=== PATIENT | female | born 1995 | race African-American/Black ===

== ENCOUNTER 2020-04-20 16:44 | Emergency (ER) | payer OTHER ==
[~2020-04-20] VITALS: Ht 165.1 cm; Wt 64.5 kg
[2020-04-20 17:10] VITALS: BP 119/84; TEMP 98.8
[2020-04-20 17:45] LABS: BASO % 0.2 % (0.0-2.0); EOS # 0.1 (0.0-0.7); EOS % 1.5 % (0-4.0); GRAN # 3.5 (1.4-6.5); GRAN % 63.3 % (42.2-75.2); HEMATOCRIT 37.8 % (37.0-47.0); HEMOGLOBIN 11.5 g/dl (12.5-16.0); LYMPH # 1.4 (1.2-3.4); LYMPH % 25.8 % (20.0-51.0); MEAN CELL VOLUME 72 fl (80.0-100.0); MEAN CORPUSCULAR HEMOGLOBIN 22 pg (27.0-31.0); MEAN CORPUSCULAR HGB CONC 30 g/dl (33.0-37.0); MEAN PLATELET VOLUME 10.9 fl (7.4-10.4); MONO # 0.5 (0.1-0.6); PLATELET COUNT 316 K/mm3 (130-400); RED BLOOD COUNT 5.24 M/mm3 (4.10-5.30); REDCELL DISTRIBUTION WIDTH-CV 16.8 % (11.5-14.5)
[2020-04-20 17:54] LABS: ALBUMIN 4.5 gm/dL (3.5-5.0); BILIRUBIN,TOTAL 0.7 mg/dL (0.0-1.0); CALCIUM 9.6 mg/dL (8.4-10.2); CREATININE, serum 0.55 (0.52-1.25); POTASSIUM 3.4 mmol/L (3.4-5.0)
[2020-04-20 18:52] LABS: COLLECTION METHOD CLEAN CATCH
[2020-04-20 18:59] LABS: MUCOUS Present /lpf; PH 5 (5-8); URINE APPEARANCE Hazy; URINE BACTERIA Rare /hpf; URINE BILIRUBIN Negative (NEGATIVE); URINE BLOOD Negative (NEGATIVE); URINE COLOR Yellow; URINE GLUCOSE Negative (NEGATIVE); URINE KETONE 2+ (NEGATIVE); URINE LEUKOCYTE ESTERASE Trace (NEGATIVE); URINE NITRATE Negative (NEGATIVE); URINE PROTEIN(semi-quant) 2+ (NEGATIVE); URINE RBC 0-2 /hpf
[2020-04-20 19:31] VITALS: PULSE 94
== END 2020-04-20 19:36 | disposition home or self-care (01) ==
LOC: COL.ER 16:44
PROVIDERS: Physician Assistant
DX: O26.891 Other specified pregnancy related conditions, first trimester (principal); R10.9 Unspecified abdominal pain; R11.2 Nausea with vomiting, unspecified; Z3A.00 Weeks of gestation of pregnancy not specified
CPT/HCPCS: J2765; J7030

== ENCOUNTER 2021-01-11 14:06 | Outpatient (CLI) | payer OTHER ==
[~2021-01-11] VITALS: Ht 165.1 cm; Wt 77.3 kg
--- NOTE | 2021-01-11 14:10 | NUR ---
PT ARRIVES AMBULATORY TO UNIT ALONE C/O N/V/DIARRHEA AND ABDOMINAL CRAMPING. PLACED IN GOWN AND ASSISTED INTO BED. PLACED ON EFM/TOCO. DENIES LEAKING OF FLUID AND REPORTS POSITIVE MOVEMENT. CATEGORY 1 STRIP ON EFM UPON ARRIVAL. SVE FINGER TIP/THICK/HIGH. WATER PROVIDED FOR PT TO BEGIN DRINKING. PT'S OB AT [facility] AND DOES NOT HAVE RECORDS AVAILABLE. DENIES PREGNACY COMPLICATIONS AND REPORTS SHE IS 32.5 WEEKS GESTATION TODAY.
[2021-01-11] MEDS ORDERED: PRENATAL PO (14:22)
[2021-01-11 14:45] VITALS: BP 133/70; PULSE 88; TEMP 99.1
[2021-01-11 15:15] LABS: COLLECTION METHOD CLEAN CATCH
[2021-01-11 15:34] LABS: MEAN CELL VOLUME 64 fl (80.0-100.0); MEAN CORPUSCULAR HGB CONC 29 g/dl (33.0-37.0); MEAN PLATELET VOLUME 10.4 fl (7.4-10.4); PLATELET COUNT 273 K/mm3 (130-400); RED BLOOD COUNT 4.08 M/mm3 (4.10-5.30); REDCELL DISTRIBUTION WIDTH-CV 19.3 % (11.5-14.5)
[2021-01-11 15:38] LABS: ALBUMIN 2.9 gm/dL (3.5-5.0); BILIRUBIN,TOTAL 0.5 mg/dL (0.2-1.2); CALCIUM 8.8 mg/dL (8.4-10.2); CREATININE, serum 0.61 mg/dL (0.57-1.11); POTASSIUM 3.5 mmol/L (3.5-4.5); TOTAL PROTEIN 6.9 gm/dL (6.2-8.1)
[2021-01-11 15:40] LABS: HEMATOCRIT 26.1 % (37.0-47.0); HEMOGLOBIN 7.5 g/dl (12.5-16.0); MEAN CORPUSCULAR HEMOGLOBIN 18 pg (27.0-31.0)
[2021-01-11 15:41] LABS: MUCOUS Present /lpf; PH 5 (5-8); URINE APPEARANCE Hazy; URINE BACTERIA None Seen /hpf; URINE BILIRUBIN Negative (NEGATIVE); URINE BLOOD Negative (NEGATIVE); URINE COLOR Yellow; URINE GLUCOSE Negative (NEGATIVE); URINE KETONE Negative (NEGATIVE); URINE LEUKOCYTE ESTERASE Negative (NEGATIVE); URINE NITRATE Negative (NEGATIVE); URINE PROTEIN(semi-quant) 1+ (NEGATIVE); URINE RBC 0-2 /hpf
[2021-01-11 15:42] VITALS: BP 143/68; PULSE 78
--- NOTE | 2021-01-11 15:47 | NUR ---
AT BEDSIDE, SVE FINGER TIP/THICK/HIGH. PT C/O ABDOMINAL CRAMPING, NAUSEA, VOMITING AND DIARRHEA THROUGHOUT , BUT WORSENING THE PAST 24 HOURS. PRIMARY OB AT [facility]. RECORDS UNAVAILABLE. REPORTS POSITIVE MOVEMENT AND DENIES LEAKING OF FLUID. PT TOLERATING PO FLUID AT THIS TIME. REVIEWS LABS AND ORDERS FOR PT TO DC HOME AND FOLLOW UP AT [place] WITH HER OB.
[2021-01-11 17:09] LABS: BAND 3 % (0-10); LYMPHOCYTE 11 % (20.0-51.0); NEUTROPHILS 77 % (42.0-75.2); PLATELET ESTIMATE NORMAL (NORMAL)
[2021-01-11 17:10] LABS: ANISOCYTOSIS 2+; HYPOCHROMIA 3+; MICROCYTOSIS 2+
[2021-01-11 17:12] LABS: OVALOCYTES 2+; POIKILOCYTOSIS 2+; SCHISTOCYTES 1+; TEAR DROP CELLS 1+
[2021-01-11 17:13] LABS: HOWELL-JOLLY BODIES 1+
[2021-01-11 17:14] LABS: POLYCHROMASIA 1+
[2021-01-12 08:13] LABS: PATHOLOGY DIFF REVIEW OK
== END 2021-01-11 16:00 ==
LOC: LDRO 14:06 → LDR 14:15 → LDRO 16:00
PROVIDERS: Obstetrics & Gynecology
DX: Z34.93 Encounter for supervision of normal pregnancy, unspecified, third trimester (principal); Z3A.32 32 weeks gestation of pregnancy
CPT/HCPCS: OP

== ENCOUNTER 2021-01-16 10:05 | Outpatient (CLI) | payer OTHER ==
[~2021-01-16] VITALS: Ht 165.1 cm; Wt 80.5 kg
[~2021-01-16 10:05] MED LIST: PRENATAL PO
--- NOTE | 2021-01-16 10:05 | NUR ---
PT ARRIVE VIA EMS C/O PRESSURE AND URGE TO PUSH. PRIMARY OB AT [facility], PRENATALS NOT AVAILABLE. PT DENIES COMPLICATIONS, REPORTS HX.ASTHMA. SVE UPON ARRIVAL CLOSED/THICK/HIGH. CATEGORY 1 STRIP ON EFM. PT TEARFUL AND REPORTS DEALING WITH "A LOT OF STRESS". DENIES LEAKING OF FLUID AND REPORTS POSITIVE MOVEMENT. NOTIFIED. SEE PHYS NOTIFICATION.
[2021-01-16 10:30] VITALS: BP 110/66; PULSE 80; TEMP 98.1
== END 2021-01-16 10:45 | disposition home or self-care (01) ==
LOC: LDRO 10:05
DX: Z34.90 Encounter for supervision of normal pregnancy, unspecified, unspecified trimester (principal); Z3A.00 Weeks of gestation of pregnancy not specified